=== PATIENT | male | born 1960 | race Caucasian/White ===

== ENCOUNTER 2016-11-25 13:27 | Day surgery (SDC) | payer OTHER ==
[~2016-11-25] VITALS: Ht 170.2 cm; Wt 82.9 kg
[2016-11-25 13:59] VITALS: BP 133/81; PULSE 89; TEMP 98.2
[2016-11-25] MEDS ORDERED: LOTREL 10 MG-401 CAP PO (14:07)
[2016-11-25] MEDS ORDERED: ASPIRIN E.C. 8181 MG PO (14:07)
[2016-11-25] MEDS ORDERED: LIPITOR 40MG TA40 MG PO (14:08)
[2016-11-25] MEDS ORDERED: LIDODERM 5% PATC1 EA TP (14:08)
[2016-11-25] MEDS ORDERED: BENGAY COLD THERAP5% TOP (14:08)
[2016-11-25] MEDS ORDERED: MELATONIN3 MG PO (14:09)
[2016-11-25] MEDS ORDERED: OMEGA-31 SGL PO (14:09)
[2016-11-25] MEDS ORDERED: VITAMIN D 50,1.25 MG PO (14:10)
[2016-11-25] MEDS ORDERED: VITAMIN D31000 IU PO (14:10)
[2016-11-25] MEDS ORDERED: MULTI VITAMINS1 TAB PO (14:11)
[2016-11-25] MEDS ORDERED: URINOZINC PO (14:11)
[2016-11-25] MEDS ORDERED: VITAMIN B COMPL1 TA1 PO (14:12)
[2016-11-25] MEDS ORDERED: FIBER0.52 GM PO (14:12)
[2016-11-25 15:15] VITALS: BP 127/70; PULSE 73; TEMP 97.6
[2016-11-25 15:30] VITALS: BP 121/77; PULSE 84
[2016-11-25 16:03] VITALS: BP 118/68; PULSE 76
== END 2016-11-25 16:30 | disposition home or self-care (01) ==
LOC: SDCO 13:27
DX: D12.3 Benign neoplasm of transverse colon (principal); Z86.010 Personal history of colon polyps
CPT/HCPCS: OP; J2250; J3010; J7030

== ENCOUNTER 2018-03-31 06:55 | Day surgery (SDC) | payer OTHER ==
[~2018-03-31] VITALS: Ht 170.2 cm; Wt 83.2 kg
[~2018-03-31 06:55] MED LIST: ASPIRIN E.C. 8181 MG PO; BENGAY COLD THERAP5% TOP; FIBER0.52 GM PO; LIDODERM 5% PATC1 EA TP; LIPITOR 40MG TA40 MG PO; LOTREL 10 MG-401 CAP PO; MELATONIN5 M1 SL; MULTI VITAMINS1 TAB PO; OMEGA-31 SGL PO; URINOZINC PO; VITAMIN B COMPL1 TA1 PO; VITAMIN D 50,1.25 MG PO; VITAMIN D31000 IU PO
[2018-03-31] MEDS ORDERED: FLOMAX 0.40.4 MG/CAP PO (07:21)
[2018-03-31] MEDS ORDERED: ANECREAM TP (07:23)
[2018-03-31] MEDS ORDERED: TRIAMCINOLONE A15 G1 TP (07:23)
[2018-03-31] MEDS ORDERED: THE MEDICINE S200 M2 PO (07:24)
[2018-03-31 07:36] VITALS: BP 130/79; PULSE 67; TEMP 98.5
[2018-03-31 09:10] VITALS: BP 121/84; PULSE 69; TEMP 98.1
[2018-03-31 09:25] VITALS: BP 105/75; PULSE 55
[2018-03-31 09:40] VITALS: BP 106/68; PULSE 48
[2018-03-31 09:55] VITALS: BP 102/76; PULSE 52
== END 2018-03-31 10:10 | disposition home or self-care (01) ==
LOC: SDCO 06:55
DX: Z12.11 Encounter for screening for malignant neoplasm of colon (principal); D12.4 Benign neoplasm of descending colon; D12.3 Benign neoplasm of transverse colon; D12.8 Benign neoplasm of rectum
CPT/HCPCS: J2250; J2405; J3010; J7030

== ENCOUNTER 2022-01-26 08:44 | Day surgery (SDC) | payer OTHER ==
[~2022-01-26] VITALS: Ht 170.2 cm; Wt 83.2 kg
[~2022-01-26 08:44] MED LIST changes: +ANECREAM TP; +FLOMAX 0.40.4 MG/CAP PO; +THE MEDICINE S200 M2 PO; +TRIAMCINOLONE A15 G1 TP
--- NOTE | 2022-01-26 09:35 | NUR ---
PT AMBULATED TO BAY 5 WITHOUT DIFFICULTY. VS OBTAINED. CONSENT SIGNED. 20G IV INFUSING LR IN R HAND. ASSESSMENT COMPLETED. CALL LIGHT WITHIN REACH. PT DENIES ANY NEEDS AT THIS TIME.
[2022-01-26 10:10] VITALS: BP 127/83; PULSE 78; TEMP 97.5
[2022-01-26 10:25] VITALS: BP 119/72; PULSE 73
[2022-01-26 10:55] VITALS: BP 144/84; PULSE 84; TEMP 97.9
--- NOTE | 2022-01-26 10:55 | NUR ---
1010 PT TO BAY 5 PER CART FROM ENDO ROOM. RECEIVED REPORT. VS OBTAINED. 1025 PT TOLERATING APPLE JUICE. DENIES ANY NEEDS. 1030 IV DC'D AT THIS TIME. 1035 DISCHARGE EDUCATION COMPLETED WITH PT. VERBALIZED UNDERSTANDING OF HOME AND FOLLOW UP CARE. ALL QUESTIONS ANSWERED. DISCHARGE PAPERWORK GIVEN TO PT. 1055 PT OFF UNIT PER WHEELCHAIR. PT DISCHARGED TO HOME WITH PER PERSONAL VEHICLE.
== END 2022-01-26 10:55 | disposition home or self-care (01) ==
LOC: SDCO 08:44
DX: D12.2 Benign neoplasm of ascending colon (principal); K63.5 Polyp of colon; K62.89 Other specified diseases of anus and rectum; K64.0 First degree hemorrhoids; Z79.82 Long term (current) use of aspirin
CPT/HCPCS: J7120